=== PATIENT | female | born 1980 ===

== ENCOUNTER 2019-04-23 18:21 | Emergency (ER) | payer OTHER ==
[2019-04-23] MEDS ORDERED: FLUORESCEIN 1 MG STRIP OP ONE (19:13)
[2019-04-23] MEDS ORDERED: TETRACAINE 0.5% OPHTH SOLN 4ML ONE (19:13)
[2019-04-23] MEDS ORDERED: cloNIDine 0.2 MG TAB ONE (21:43)
[2019-04-23] MEDS ORDERED: cloNIDine 0.2 MG TAB PO ONE (21:46)
[2019-04-23 22:38] VITALS: BP 163/99
[2019-04-23] MEDS ORDERED: BUTALB/ACETAMINOPHEN/CAFFEINE TAB PO ONE (23:19)
--- NOTE | 2019-04-23 23:32 | Emergency Department Report ---
ED Headache HPI - General Chief Complaint: Recheck/Abnormal Lab/Rx Stated Complaint: NEED HBP MEDS Time Seen by Provider: 04/23/19 23:01 Source: patient Exam Limitations: no limitations - History of Present Illness Initial Comments: 39-year-old female with history of hypertension presents to ED for medication refill and headache. Patient reports onset of headache this morning because she ran out of her blood pressure medication. Patient states pain is diffuse. She denies any nausea, vomiting, dizziness, vision changes, weakness or numbness. Patient states she normally experiences this type of headache when she runs out of her medication. She does not currently have a PCP. Patient was given clonidine 0.2 mg prior to me seeing her. Blood pressure has improved, patient reports headache has improved somewhat. Timing/Duration: other (this morning) Quality: moderate Associated Symptoms: denies: fever/chills, nausea/vomiting, stiff neck, vision changes, weakness Allergies/Adverse Reactions: Allergies No Known Allergies Allergy (Verified 04/23/19 18:23) Home Medications: Ambulatory Orders Lisinopril/Hydrochlorothiazide [Zestoretic 20-25 mg] 1 tab PO QDAY #30 tab 04/23/19 ED Review of Systems ROS: Stated complaint: NEED HBP MEDS Other details as noted in HPI Comment: All other systems reviewed and negative Constitutional: denies: chills, fever Neurological: headache. denies: weakness, numbness, paresthesias, vertigo ED Past Medical Hx - Past Medical History Previous Medical History?: Yes Hx Hypertension: Yes - Surgical History Past Surgical History?: Yes Additional Surgical History: tubal ligation - Social History Smoking Status: Never Smoker Substance Use Type: None - Medications Home Medications: Home Medications Medication Instructions Recorded Confirmed Last Taken Type Lisinopril/Hydrochlorothiazide 1 tab PO QDAY #30 tab 04/23/19 Unknown Rx [Zestoretic 20-25 mg] ED Physical Exam - General Limitations: No Limitations General appearance: alert, in no apparent distress - Head Head exam: Present: atraumatic, normocephalic - Eye Eye exam: Present: normal appearance, PERRL, EOMI - ENT ENT exam: Present: mucous membranes moist - Neck Neck exam: Present: normal inspection, full ROM - Respiratory Respiratory exam: Present: normal lung sounds bilaterally. Absent: respiratory distress - Cardiovascular Cardiovascular Exam: Present: regular rate, normal rhythm - GI/Abdominal GI/Abdominal exam: Absent: distended - Extremities Exam Extremities exam: Present: normal inspection - Neurological Exam Neurological exam: Present: alert, oriented X3, CN II-XII intact. Absent: motor sensory deficit - Psychiatric Psychiatric exam: Present: normal affect, normal mood - Skin Skin exam: Present: warm, dry, intact, normal color. Absent: rash ED Course Vital Signs 04/23/19 04/23/19 04/23/19 18:54 21:35 21:45 Temperature 98.0 F Pulse Rate 80 92 H 92 H Respiratory 18 18 Rate Blood Pressure 212/128 212/128 Blood Pressure 196/116 [Right] O2 Sat by Pulse 100 98 Oximetry 04/23/19 22:35 Temperature Pulse Rate 75 Respiratory 12 Rate Blood Pressure Blood Pressure 163/99 [Right] O2 Sat by Pulse 98 Oximetry ED Medical Decision Making - Medical Decision Making BP and BUCIO improved. No neuro deficits on exam. Refill given. Outpt resources given. - Differential Diagnosis uncontrolled HTN Critical care attestation.: If time is entered above; I have spent that time in minutes in the direct care of this critically ill patient, excluding procedure time. ED Disposition Clinical Impression: Uncontrolled hypertension Disposition: DC-01 TO HOME OR SELFCARE Is pt being admited?: No Condition: Stable Instructions: Hypertension (ED) Prescriptions: Lisinopril/Hydrochlorothiazide [Zestoretic 20-25 mg] 1 tab PO QDAY #30 tab Referrals: [facility] [Provider Group] - 3-5 Days [facility] [Outside] - 3-5 Days KRISTEN BENÍTEZ MD [Staff Physician] - 3-5 Days Time of Disposition: 23:31
== END 2019-04-24 00:10 | disposition home or self-care (01) ==
LOC: ED 18:21
DX: I10 Essential (primary) hypertension (principal)
CPT/HCPCS: 99282